=== PATIENT | female | born 1985 | race Caucasian/White ===

== ENCOUNTER → 2018-11-30 | Outpatient (CLI) | payer BC, OTHER ==
[~2018-11-30] MED LIST: AZITHROMYCIN 2250 MG PO; BACTRIM DS TAB1 EACH PO; BIRTH CONTOL; CIPROFLOXACIN500 M1 PO; DARVOCET-N 1001 EACH PO; KEFLEX500 MG PO; MACROBID 100 M100 M1; MAXITROL EYE DRO5 ML OP; NAPROSYN500 MG PO; NORCO 5-325 TA1 EACH PO; PYRIDIUM100 MG
== END ==
LOC: CAT 12:35
DX: R31.29 Other microscopic hematuria (principal); R10.9 Unspecified abdominal pain